=== PATIENT | female | born 1980 | race Caucasian/White ===

== ENCOUNTER → 2018-02-12 17:49 | Outpatient (CLI) | payer BC ==
[2012-04-12 10:54] VITALS: BMI 25.3
== END | disposition home or self-care (01) ==
LOC: D.LABREF 17:49
DX: D72.829 Elevated white blood cell count, unspecified (principal); R31.9 Hematuria, unspecified

== ENCOUNTER 2018-06-12 20:20 | Inpatient (IN) | payer OTHER ==
[~2018-06-12] VITALS: Ht 160 cm; Wt 65.0 kg
[2018-06-12 21:06] VITALS: BP 182/118
[2018-06-12 21:10] LABS: BASOPHILS 0.5 % (0-2); EOSINOPHILS 0.6 % (0-7); HEMATOCRIT 43.1 % (36.0-48.0); HEMOGLOBIN 15.2 g/dL (12-16); IMMATURE GRANULOCYTES 0.3 % (0-5); LYMPHOCYTES 13.7 % (15-50); MCH 30.1 pg (26.0-34.0); MCHC 35.3 g/dL (31.0-37.0); MCV 85.3 fL (80.0-100.0); MEAN PLATELET VOLUME 9.6 fL (7.4-10.4); MONOCYTES 6.7 % (2-11); NEUTROPHILS 78.2 % (40-80); RBC 5.05 10x6/uL (4.00-5.40); RDW 12.4 % (11.5-14.5)
[2018-06-12 21:31] LABS: HCG SERUM NEGATIVE (NEGATIVE); PLATELET COUNT 314 10x3/uL (130-400)
[2018-06-12 21:41] LABS: ANION GAP 19.2 mmol/L (8-16); BILIRUBIN - TOTAL 1.11 mg/dL (0.2-1.3); CALCIUM 9.1 mg/dL (8.5-10.1); CARBON DIOXIDE 21.8 mmol/L (21.0-32.0); CREATININE - SERUM 0.9 mg/dL (0.6-1.3)
--- NOTE | 2018-06-13 00:21 | NUR ---
PT LYING IN BED WITH NO S/S OF DISTRESS. PT STATED HER PAIN LEVEL IS 5/10. NOTIFIED PT'S PRIMARY NURSE OF PAIN LEVEL
--- NOTE | 2018-06-13 01:40 | NUR ---
ekg completed and placed on chart.
--- NOTE | 2018-06-13 02:38 | NUR ---
REPORT GIVEN TO LOGAN GASPAR, PATIENT MOVED TO ROOM 2225 VIA WHEEL CHAIR IN STABLE CONDITION.
[2018-06-13 03:04] VITALS: BP 159/115; Ht 160 cm; Wt 65.0 kg
[2018-06-13] MEDS ORDERED: CYMBALTA60 MG PO (03:18)
[2018-06-13] MEDS ORDERED: ANSAID50 MG PO ×2 (03:19→03:22)
[2018-06-13 04:48] VITALS: BP 132/91
--- NOTE | 2018-06-13 08:15 | NUR ---
PT RESTING IN BED WITH EYES CLOSED. AROUSED BY VERBAL STIMULI. AT BEDSIDE. NO S/S OF ACUTE DISTRESS. CL IN PLACE.
[2018-06-13 09:00] VITALS: BP 147/100
[2018-06-13 09:38] LABS: BASOPHILS 0.8 % (0-2); EOSINOPHILS 2.5 % (0-7); HEMATOCRIT 39.9 % (36.0-48.0); HEMOGLOBIN 13.3 g/dL (12-16); IMMATURE GRANULOCYTES 0.2 % (0-5); LYMPHOCYTES 29.2 % (15-50); MCH 29.4 pg (26.0-34.0); MCHC 33.3 g/dL (31.0-37.0); MEAN PLATELET VOLUME 9.6 fL (7.4-10.4); MONOCYTES 6.3 % (2-11); PLATELET COUNT 262 10x3/uL (130-400); RBC 4.52 10x6/uL (4.00-5.40); RDW 12.8 % (11.5-14.5)
[2018-06-13 09:49] LABS: MCV 88.3 fL (80.0-100.0); WBC 6.5 10x3/uL (4.8-10.8)
[2018-06-13 09:50] LABS: CALCIUM 8.3 mg/dL (8.5-10.1); CHLORIDE - SERUM 104 mmol/L (98-107); CREATININE - SERUM 0.7 mg/dL (0.6-1.3); GLUCOSE 142 mg/dL (74-106); POTASSIUM - SERUM 3.3 mmol/L (3.5-5.1); SODIUM 140 mmol/L (136-145); eGFR NON AFRICAN AMERICAN > 90 mL/min (90-120)
[2018-06-13 09:52] LABS: CALC OSMOLALITY 278 mosm/kg (275-300); CARBON DIOXIDE 27.8 mmol/L (21.0-32.0); UREA NITROGEN 6 mg/dL (7-18)
[2018-06-13 13:56] VITALS: BP 149/99
[2018-06-13 17:12] VITALS: BP 141/97
--- NOTE | 2018-06-13 18:48 | NUR ---
PT RESTING IN BED. DAUGHTER AND AT BEDSIDE. CO OF TY. DENIES WANTING DEMEROL AT THIS TIME. NO S/S OF ACUTE DISTRESS. CL IN PLACE.
[2018-06-13 19:09] LABS: APPEARANCE CLEAR (CLEAR); BILIRUBIN NEGATIVE (NEGATIVE); COLOR YELLOW (YELLOW); GLUCOSE NEGATIVE (NEGATIVE); KETONE NEGATIVE (NEGATIVE); NITRITE NEGATIVE (NEGATIVE); PROTEIN NEGATIVE (NEGATIVE); UROBILINOGEN NORMAL (NORMAL)
--- NOTE | 2018-06-13 20:27 | NUR ---
PATIENT COMPLAINS OF MIGRAINE HEADACHE. RECIEVED CALL FROM DR INFANTE WITH ORDERS RECIEVED. IMITREX 100 MG GIVEN X 1 PER ORDERS. SL TO LEFT AC INTACT WITHOUT REDNESS OR EDEMA NOTED. NO OTHER COMPLAINTS VOICED AT THIS TIME.CL IN REACH. AT BEDSIDE.
--- NOTE | 2018-06-14 05:33 | NUR ---
PT IN BED IN LOW FOWLERS POSITION. ALERT AND ORIENTED X4. VITAL SIGNS STABLE AND AFEBRILE. NO VISUAL CUES OF DISTRESS NOTED. DENIES ANY OTHER NEEDS AT THIS TIME. BED LOW, SIDE RAILS UP X2. CALL LIGHT IN REACH. WILL CONTINUE TO MONITOR.
[2018-06-14 05:51] LABS: BASOPHILS 0.8 % (0-2); EOSINOPHILS 3.1 % (0-7); HEMATOCRIT 39.9 % (36.0-48.0); HEMOGLOBIN 13.2 g/dL (12-16); IMMATURE GRANULOCYTES 0.2 % (0-5); LYMPHOCYTES 39.1 % (15-50); MCH 29.3 pg (26.0-34.0); MCHC 33.1 g/dL (31.0-37.0); MCV 88.5 fL (80.0-100.0); MEAN PLATELET VOLUME 10.1 fL (7.4-10.4); MONOCYTES 7.4 % (2-11); NEUTROPHILS 49.4 % (40-80); PLATELET COUNT 263 10x3/uL (130-400); RBC 4.51 10x6/uL (4.00-5.40); RDW 12.8 % (11.5-14.5); WBC 6.4 10x3/uL (4.8-10.8)
--- NOTE | 2018-06-14 05:57 | NUR ---
RESTING QUIETLY.NO DISTRESS NOTED. CL IN REACH
[2018-06-14 06:23] LABS: ALKALINE PHOSPHATASE 67 U/L (46-116); BILIRUBIN - TOTAL 1.14 mg/dL (0.2-1.3); CALCIUM 8.4 mg/dL (8.5-10.1); CARBON DIOXIDE 25.7 mmol/L (21.0-32.0); CHLORIDE - SERUM 106 mmol/L (98-107); CREATININE - SERUM 0.6 mg/dL (0.6-1.3); MAGNESIUM - SERUM 2.3 mg/dL (1.8-2.4); PHOSPHOROUS 3.5 mg/dL (2.5-4.9); POTASSIUM - SERUM 3.5 mmol/L (3.5-5.1); PROTEIN - SERUM 6.1 g/dL (6.4-8.2); SODIUM 141 mmol/L (136-145); UREA NITROGEN 5 mg/dL (7-18); eGFR NON AFRICAN AMERICAN > 90 mL/min (90-120)
[2018-06-14 06:27] LABS: ALBUMIN 2.9 g/dL (3.4-5.0); ALT (SGPT) 62 U/L (10-68); CALC OSMOLALITY 276 mosm/kg (275-300); GLUCOSE 84 mg/dL (74-106)
--- NOTE | 2018-06-14 08:28 | MORECARE ---
CASE MANAGEMENT DISCHARGE SUMMARY PATIENT: SALEEM VARGAS UNIT: [id number] ADM DATE: 06/13/18 AGE: 37 : 78 SEX: F ROOM/BED: D.2225 AUTHOR: AURELIO LAKHANI PHYSICIAN: REFERRING PHYSICIAN: STEPHY INFANTE MD DATE OF SERVICE: 06/14/18 Discharge Plan Patient Name: SALEEM [facility]ARGAS [facility] [facility] 1980 Planned Disposition: Home Anticipated Discharge Date: 06/14/18 Discharge Date: Expected LOS: 1 Initial Reviewer: [email or web address] Initial Review Date: 06/14/2018 Generated: 06/14/18 9:28 am DCPIA - Discharge Planning Initial Assessment Updated by [email or web address]: Lisette Alvarez on 06/14/18 8:27 am * Is the patient Alert and Oriented? Yes * How many steps to enter\exit or inside your home? 2/0 * PCP Dr. Marshall * Pharmacy [facility] [place] [place] [facility] * Preadmission Environment Home with Family * ADLs Independent * Equipment None * List name and contact numbers for known caregivers / representatives who currently or will assist patient after discharge: Salas [facility] - [phone] * Verbal permission to speak to the caregivers and representatives has been obtained from the patient. Yes * Community resources currently utilized None * Additional services required to return to the preadmission environment? No * Can the patient safely return to the preadmission environment? Yes * Has this patient been hospitalized within the prior 30 days at any hospital? No Patient Name: SALEEM VARGAS Page 28596 at 0828 All edits/amendments must be made on the electronic document DICTATION DATE: 06/14/18827 ASSISTANT SOFTBALL COACH: CODY 06/14/18827 RPT#: [id number] DC DATE: STATUS: ADM IN [facility] [address] [place] [address] END OF REPORT
[2018-06-14 08:38] VITALS: BP 151/98
--- NOTE | 2018-06-14 08:42 | MORECARE ---
CASE MANAGEMENT DISCHARGE SUMMARY PATIENT: SALEEM VARGAS UNIT: [id number] ADM DATE: 06/13/18 AGE: 37 : 78 SEX: F ROOM/BED: D.2225 AUTHOR: KAR,DOC PHYSICIAN: REFERRING PHYSICIAN: STEPHY INFANTE MD DATE OF SERVICE: 06/14/18 Discharge Plan Patient Name: SALEEM VARGAS Facility: [facility]:[place] : 1980 Planned Disposition: Home Anticipated Discharge Date: 06/14/18 Discharge Date: Expected LOS: 1 Initial Reviewer: [email or web address] Initial Review Date: 06/14/2018 Generated: 06/14/18 9:41 am Comments DCP- Discharge Planning Updated by [email or web address]: Lisette Alvarez on 06/14/18 7:[address] Patient Name: SALEEM VARGAS Admission Status: ER Accout number: [id number] Admission Date: 06-13-2018 : 1980 Admission Diagnosis: Attending: STEPHY INFANTE Current LOS: 1 Anticipated DC Date: 06-14-2018 Planned Disposition: Home Primary Insurance: [employer] POS Discharge Planning Comments: CM met with patient to discuss discharge planning/needs, her is in the room. States she lives with her . States she is independent with all ADL's and IADL's. States she does not have any DME or outside community resources in the home and does not need anything. No needs identified. to drive her to her appointment at Dr. Couch's office post discharge. CM will continue to follow and assist with DC planning/needs. Care Coordination Manager: Lisette Alvarez DCPIA - Discharge Planning Initial Assessment Updated by [email or web address]: Lisette Alvarez on 06/14/18 8:27 am * Is the patient Alert and Oriented? Yes * How many steps to enter\exit or inside your home? 2/0 * PCP Dr. Marshall * Pharmacy [facility] [place] [facility] * Preadmission Environment Home with Family * ADLs Independent * Equipment None * List name and contact numbers for known caregivers / representatives who currently or will assist patient after discharge: Salas - - [phone] * Verbal permission to speak to the caregivers and representatives has been obtained from the patient. Yes * Community resources currently utilized None * Additional services required to return to the preadmission environment? No * Can the patient safely return to the preadmission environment? Yes * Has this patient been hospitalized within the prior 30 days at any hospital? No Last DP export: 06/14/18 7:28 a Patient Name: SALEEM VARGAS Page [id number] at 0842 All edits/amendments must be made on the electronic document DICTATION DATE: 06/14/18840 OBSTETRICS NURSE: DM 06/14/18840 RPT#: [id number] DC DATE: STATUS: ADM IN [facility] [address] [place] [address] END OF REPORT
--- NOTE | 2018-06-14 08:46 | NUR ---
PT RESTING IN BED. AROUSED BY VERBAL STIMULI. AT BEDSIDE. DENIES PAIN. NPO. NO S/S OF ACUTE DISTRESS. CL IN PLACE.
--- NOTE | 2018-06-14 10:39 | NUR ---
DC INSTRUCTIONS AND EDUCATION GIVEN TO PT.DC IV WITH TIP INTACT. NO S/S OF ACUTE DISTRESS. AT BEDSIDE. WAITING APPT AT 1:00 TO DC AND LEAVE.
--- NOTE | 2018-06-15 16:57 | MORECARE ---
CASE MANAGEMENT DISCHARGE SUMMARY PATIENT: SALEEM VARGAS UNIT: [id number] ADM DATE: 06/13/18 AGE: 37 : 78 SEX: F ROOM/BED: D.2225 AUTHOR: KAR,DOC PHYSICIAN: REFERRING PHYSICIAN: STEPHY INFANTE MD DATE OF SERVICE: 06/15/18 Discharge Plan Patient Name: SALEEM VARGAS Facility[facility]:[place] : 1980 Planned Disposition: Home Anticipated Discharge Date: 06/14/18 Discharge Date: 06/14/2018 Expected LOS: 1 Initial Reviewer: [email or web address] Initial Review Date: 06/14/2018 Generated: 06/15/18 5:57 pm Comments DCP- Discharge Planning Updated by [email or web address]: Lisette Alvarez on 06/14/18 7:[address] Patient Name: SALEEM VARGAS Admission Status: ER Accout number: [id number] Admission Date: 06-13-2018 : 1980 Admission Diagnosis: Attending: STEPHY INFANTE Current LOS: 1 Anticipated DC Date: 06-14-2018 Planned Disposition: Home Primary Insurance: [employer] POS Discharge Planning Comments: CM met with patient to discuss discharge planning/needs, her is in the room. States she lives with her . States she is independent with all ADL's and IADL's. States she does not have any DME or outside community resources in the home and does not need anything. No needs identified. to drive her to her appointment at Dr. Couch's office post discharge. CM will continue to follow and assist with DC planning/needs. Hog Driver: Lisette Alvarez DCPIA - Discharge Planning Initial Assessment Updated by [email or web address]: Lisette Alvarez on 06/14/18 8:27 am * Is the patient Alert and Oriented? Yes * How many steps to enter\exit or inside your home? 2/0 * PCP Dr. Marshall * Pharmacy [facility] [place] #1 * Preadmission Environment Home with Family * ADLs Independent * Equipment None * List name and contact numbers for known caregivers / representatives who currently or will assist patient after discharge: [place] laird - [phone] * Verbal permission to speak to the caregivers and representatives has been obtained from the patient. Yes * Community resources currently utilized None * Additional services required to return to the preadmission environment? No * Can the patient safely return to the preadmission environment? Yes * Has this patient been hospitalized within the prior 30 days at any hospital? No Last DP export: 06/14/18 7:41 a Patient Name: SALEEM VARGAS Page 90903 at 1657 All edits/amendments must be made on the electronic document DICTATION DATE: 06/15/181656 PATTERN CHANGER: CODY 06/15/181656 RPT#: [id number] DC DATE:06/14/18 STATUS: DIS IN [facility] [address] [place] [address] END OF REPORT
== END 2018-06-14 13:42 | disposition home or self-care (01) | DRG 392 ==
LOC: D.ER 20:20 → D.MS 06-13 01:07 → D.EDHOLD 06-13 01:07 → D.MS 06-13 02:24
PROVIDERS: Family Medicine; ADMIT Internal Medicine Nephrology
DX: K29.70 Gastritis, unspecified, without bleeding (principal); I10 Essential (primary) hypertension; E87.6 Hypokalemia

== ENCOUNTER → 2018-08-16 19:53 | Outpatient (CLI) | payer OTHER ==
[2018-06-13 03:04] VITALS: BMI 25.3
[~2018-08-16 19:53] MED LIST: ANSAID50 MG PO; CYMBALTA60 MG PO
== END | disposition home or self-care (01) ==
LOC: D.MAMMO 14:30
PROVIDERS: ATTEND Family Medicine
DX: N63.21 Unspecified lump in the left breast, upper outer quadrant (principal)